=== PATIENT | female | born 1960 | race Caucasian/White ===

== ENCOUNTER 2018-01-17 07:00 | Emergency (ER) | payer OTHER ==
[2018-01-17 07:40] LABS: ADD MAN DIFF? NO
[2018-01-17 07:42] LABS: WHITE BLOOD COUNT 5.3 10^3/ul (4.8-10.8)
[2018-01-17 07:42] LABS: BASOPHILS % 0.7 % (0.0-2.0); EOSINOPHILS # 0.2 10^3/ul (0.0-0.5); EOSINOPHILS % 4.5 % (0.0-7.0); HEMOGLOBIN 10.2 g/dl (12.0-16.0); LYMPHOCYTES # 2.1 10^3/ul (0.8-2.9); LYMPHOCYTES % 39.9 % (15.0-51.0); MEAN CORPUSCULAR HEMOGLOBIN 22.9 pg (29.0-33.0); MEAN CORPUSCULAR HGB CONC 30.9 g/dl (32.0-37.0); MEAN PLATELET VOLUME 9.1 fl (7.4-10.4); MONOCYTE # 0.5 10^3/ul (0.3-0.9); MONOCYTES % 8.4 % (0.0-11.0); NEUTROPHIL # 2.4 10^3/ul (1.6-7.5); NEUTROPHILS % 45.6 % (39.0-77.0); PLATELET COUNT 375 10^3/UL (140-415); RED BLOOD COUNT 4.46 10^6/ul (4.20-5.40); RED CELL DISTRIBUTION WIDTH 18.1 % (11.5-14.5)
[2018-01-17 08:45] LABS: ANION GAP 18 (8-16); BLOOD UREA NITROGEN 10 mg/dl (7-20); CALCIUM 8.7 mg/dl (8.4-10.2); CARBON DIOXIDE 24 mmol/L (21-31); CHLORIDE 105 mmol/L (97-110); GLUCOSE 145 mg/dl (70-220); POTASSIUM 4.7 mmol/L (3.5-5.1); SODIUM 142 mmol/L (135-144)
== END 2018-01-17 12:12 | disposition short-term general hospital (02) ==
LOC: E/R 07:00
DX: H33.023 Retinal detachment with multiple breaks, bilateral (principal); I10 Essential (primary) hypertension; E11.9 Type 2 diabetes mellitus without complications; R51 Headache; Z79.4 Long term (current) use of insulin
CPT/HCPCS: 36415; 70450; 76536; 80048; 85025; 99285-25

== ENCOUNTER 2018-02-12 14:24 | Emergency (ER) | payer OTHER ==
[2018-02-12] MEDS: IBUPROFEN 200 MG TAB PO (15:56)
== END 2018-02-12 16:50 | disposition home or self-care (01) ==
LOC: FTE 14:24
DX: M79.604 Pain in right leg (principal); I10 Essential (primary) hypertension; E11.9 Type 2 diabetes mellitus without complications; E03.9 Hypothyroidism, unspecified; Z79.4 Long term (current) use of insulin; Z79.82 Long term (current) use of aspirin
CPT/HCPCS: 73590; 99283-25

== ENCOUNTER 2018-08-24 12:51 | Inpatient (IN) | payer OTHER ==
[2018-08-24 14:09] LABS: ADD MAN DIFF? NO
[2018-08-24 14:11] LABS: BASOPHILS % 0.2 % (0.0-2.0); EOSINOPHILS # 0.1 10^3/ul (0.0-0.5); EOSINOPHILS % 1.2 % (0.0-7.0); HEMATOCRIT 27.4 % (37.0-47.0); HEMOGLOBIN 8.3 g/dl (12.0-16.0); LYMPHOCYTES # 1.9 10^3/ul (0.8-2.9); LYMPHOCYTES % 21.1 % (15.0-51.0); MEAN CORPUSCULAR HEMOGLOBIN 23.6 pg (29.0-33.0); MEAN CORPUSCULAR HGB CONC 30.3 g/dl (32.0-37.0); MEAN CORPUSCULAR VOLUME 78.1 fl (82.0-101.0); MEAN PLATELET VOLUME 9.6 fl (7.4-10.4); MONOCYTE # 0.7 10^3/ul (0.3-0.9); MONOCYTES % 7.6 % (0.0-11.0); NEUTROPHIL # 6.2 10^3/ul (1.6-7.5); NEUTROPHILS % 69.6 % (39.0-77.0); PLATELET COUNT 478 10^3/UL (140-415); RED BLOOD COUNT 3.51 10^6/ul (4.20-5.40); RED CELL DISTRIBUTION WIDTH 14.7 % (11.5-14.5)
[2018-08-24 14:11] LABS: WHITE BLOOD COUNT 8.9 10^3/ul (4.8-10.8)
[2018-08-24] MEDS: CEFAZOLIN 1 GM/50 ML (PMX) 50 ML IVPB (14:11)
[2018-08-24 14:45] LABS: ALBUMIN/GLOBULIN RATIO 1.07; ANION GAP 13 (5-13); Estimated GFR > 60 mL/min (>60)
[2018-08-24 14:47] LABS: ALANINE AMINOTRANSFERASE 7 IU/L (13-69); ALBUMIN 4.2 g/dl (3.3-4.9); ALKALINE PHOSPHATASE 124 IU/L (42-121); ASPARTATE AMINO TRANSFERASE 19 IU/L (15-46); BILIRUBIN,INDIRECT 0.1 mg/dl (0-1.1); BILIRUBIN,TOTAL 0.1 mg/dl (0.2-1.3); BLOOD UREA NITROGEN 16 mg/dl (7-20); C-REACTIVE PROTEIN 4.4 mg/dl (0.0-0.9); CALCIUM 9.7 mg/dl (8.4-10.2); CARBON DIOXIDE 25 mmol/L (21-31); CHLORIDE 100 mmol/L (97-110); GLUCOSE 251 mg/dl (70-220); POTASSIUM 5.4 mmol/L (3.5-5.1); SODIUM 138 mmol/L (135-144); TOTAL PROTEIN 8.1 g/dl (6.1-8.1)
[2018-08-24 15:20] LABS: ERYTHROCYTE SEDIMENTATION RATE 100 mm/Hr (0-30)
[2018-08-24] MEDS ORDERED: ONDANSETRON 4 MG INJ IV (17:00)
[2018-08-24] MEDS ORDERED: ACETAMINOPHEN 325 MG TAB PO (17:00)
[2018-08-24] MEDS ORDERED: GLUCAGON 1 MG INJ IM (17:30)
[2018-08-24] MEDS ORDERED: GLUCOSE GEL 15 GRAM TUBE PO ×2 (17:30)
[2018-08-24] MEDS ORDERED: DEXTROSE 50% 50 ML SYRINGE IV ×2 (17:30)
[2018-08-24] MEDS ORDERED: GLUCOSE GEL 15 GRAM TUBE BUCCAL (17:30)
[2018-08-24] MEDS ORDERED: BENZONATATE 100 MG CAP PO (17:30)
[2018-08-24 17:34] LABS: HEMOGLOBIN A1C 11.4 % (0-5.9)
[2018-08-24] MEDS: LEVOFLOXACIN 750MG/D5W (PMX) 150 ML IVPB (17:58)
[2018-08-24] MEDS ORDERED: VANCOMYCIN IV PER PHARMACY XX (19:00)
[2018-08-24] MEDS: morphine 2 MG INJ IV (19:32)
[2018-08-24] MEDS: GABAPENTIN 300 MG CAP PO (20:20)
[2018-08-24] MEDS: FERROUS SULFATE (EC) 325 MG TAB PO (20:20)
[2018-08-24] MEDS: INSULIN ASPART [NOVOLOG] 3 ML PEN SC ×2 (20:24→22:09)
[2018-08-24] MEDS: VANCOMYCIN HCL 1.5 GM in SOD CHLORIDE 0.9% 250 ML IVPB (21:28)
[2018-08-24] MEDS: AMITRIPTYLINE 25 MG TAB PO (21:55)
[2018-08-24] MEDS: INSULIN GLARGINE [LANTus] (100 UNITS/ML) SYG SC (21:58)
[2018-08-24] MEDS: MUPIROCIN 2% 22 GM OINT TOP (22:02)
[2018-08-24] MEDS: HYDROCODONE/APAP (5/325) TAB PO (23:46)
[2018-08-25] MEDS: MUPIROCIN 2% 22 GM OINT TOP ×3 (05:09→21:04)
[2018-08-25 05:21] LABS: ADD MAN DIFF? NO
[2018-08-25 05:29] LABS: WHITE BLOOD COUNT 6.7 10^3/ul (4.8-10.8)
[2018-08-25 05:30] LABS: BASOPHILS % 0.4 % (0.0-2.0); EOSINOPHILS # 0.2 10^3/ul (0.0-0.5); EOSINOPHILS % 3.6 % (0.0-7.0); HEMATOCRIT 24.3 % (37.0-47.0); HEMOGLOBIN 7.4 g/dl (12.0-16.0); LYMPHOCYTES # 2.4 10^3/ul (0.8-2.9); LYMPHOCYTES % 36.4 % (15.0-51.0); MEAN CORPUSCULAR HEMOGLOBIN 23.9 pg (29.0-33.0); MEAN CORPUSCULAR HGB CONC 30.5 g/dl (32.0-37.0); MEAN CORPUSCULAR VOLUME 78.4 fl (82.0-101.0); MEAN PLATELET VOLUME 9.4 fl (7.4-10.4); MONOCYTE # 0.7 10^3/ul (0.3-0.9); MONOCYTES % 10.6 % (0.0-11.0); NEUTROPHIL # 3.3 10^3/ul (1.6-7.5); NEUTROPHILS % 48.7 % (39.0-77.0); PLATELET COUNT 423 10^3/UL (140-415); RED CELL DISTRIBUTION WIDTH 14.6 % (11.5-14.5)
[2018-08-25] MEDS: HYDROCODONE/APAP (5/325) TAB PO ×2 (05:40→12:33)
[2018-08-25 06:38] LABS: ANION GAP 6 (5-13); BLOOD UREA NITROGEN 12 mg/dl (7-20); CARBON DIOXIDE 25 mmol/L (21-31); CHLORIDE 104 mmol/L (97-110); CREATININE 0.76 mg/dl (0.44-1.00); Estimated GFR > 60 mL/min (>60); GLUCOSE 113 mg/dl (70-220); MAGNESIUM 1.2 mg/dl (1.7-2.5); PHOSPHORUS 4.3 mg/dl (2.5-4.9); POTASSIUM 4.5 mmol/L (3.5-5.1); SODIUM 135 mmol/L (135-144)
[2018-08-25] MEDS: INSULIN ASPART [NOVOLOG] 3 ML PEN SC ×7 (07:49→21:09)
[2018-08-25] MEDS ORDERED: VANCOMYCIN 750 MG (PMX) 250 ML IVPB (08:00)
[2018-08-25] MEDS: SODIUM HYPOCHLORITE (1/40) 1 APPLIC BTL IRR ×2 (09:09→21:04)
[2018-08-25] MEDS: LORATADINE 10 MG TAB PO (09:09)
[2018-08-25] MEDS: ASPIRIN 81 MG TAB PO (09:09)
[2018-08-25] MEDS: LEVOTHYROXINE 50 MCG TAB PO (09:09)
[2018-08-25] MEDS: GABAPENTIN 300 MG CAP PO ×3 (09:09→21:03)
[2018-08-25] MEDS: FERROUS SULFATE (EC) 325 MG TAB PO ×3 (09:09→21:03)
[2018-08-25] MEDS: VANCOMYCIN 750 MG (PMX) 250 ML IVPB ×2 (09:10→21:03)
[2018-08-25 10:09] LABS: FREE T4 (FREE THYROXINE) 0.98 ng/dl (0.64-1.79); T4 (THYROXINE) 6.8 ug/dl (5.5-11.0)
[2018-08-25 10:09] LABS: FREE T3 3.31 pg/ml (2.77-5.27)
[2018-08-25] MEDS: MAGNESIUM SULFATE 4 GM/100 ML 100 ML IVPB (12:17)
[2018-08-25] MEDS: BENAZEPRIL 40 MG TAB PO (12:18)
[2018-08-25] MEDS: ONDANSETRON 4 MG INJ IV (13:52)
[2018-08-25] MEDS: CHOLECALCIFEROL 2,000 UNIT CAP PO ×2 (15:31→21:03)
[2018-08-25] MEDS: ACETAMINOPHEN 325 MG TAB PO (15:35)
[2018-08-25] MEDS: SOD CHLORIDE 0.9% 500 ML IV (15:58)
[2018-08-25 17:21] LABS: HEMATOCRIT 25.9 % (37.0-47.0); HEMOGLOBIN 7.8 g/dl (12.0-16.0)
[2018-08-25] MEDS: LEVOFLOXACIN 750MG/D5W (PMX) 150 ML IVPB (21:02)
[2018-08-25] MEDS: AMITRIPTYLINE 25 MG TAB PO (21:03)
[2018-08-25] MEDS: INSULIN GLARGINE [LANTus] (100 UNITS/ML) SYG SC (21:09)
[2018-08-25] MEDS: morphine 2 MG INJ IV (23:42)
[2018-08-26] MEDS: LEVOTHYROXINE 50 MCG TAB PO (05:22)
[2018-08-26] MEDS: morphine 2 MG INJ IV ×4 (05:22→20:53)
[2018-08-26 05:26] LABS: ADD MAN DIFF? NO
[2018-08-26 05:38] LABS: BASOPHILS % 0.6 % (0.0-2.0); EOSINOPHILS # 0.2 10^3/ul (0.0-0.5); EOSINOPHILS % 3.1 % (0.0-7.0); HEMATOCRIT 23.5 % (37.0-47.0); HEMOGLOBIN 7.2 g/dl (12.0-16.0); LYMPHOCYTES # 1.7 10^3/ul (0.8-2.9); LYMPHOCYTES % 25.7 % (15.0-51.0); MEAN CORPUSCULAR HEMOGLOBIN 23.6 pg (29.0-33.0); MEAN CORPUSCULAR HGB CONC 30.6 g/dl (32.0-37.0); MEAN PLATELET VOLUME 9.2 fl (7.4-10.4); MONOCYTE # 0.6 10^3/ul (0.3-0.9); MONOCYTES % 8.6 % (0.0-11.0); NEUTROPHILS % 61.5 % (39.0-77.0); PLATELET COUNT 434 10^3/UL (140-415); RED BLOOD COUNT 3.05 10^6/ul (4.20-5.40); RED CELL DISTRIBUTION WIDTH 14.5 % (11.5-14.5)
[2018-08-26 05:38] LABS: WHITE BLOOD COUNT 6.5 10^3/ul (4.8-10.8)
[2018-08-26 06:10] LABS: ALBUMIN 3.5 g/dl (3.3-4.9); ANION GAP 8 (5-13); BLOOD UREA NITROGEN 8 mg/dl (7-20); CALCIUM 9.2 mg/dl (8.4-10.2); CARBON DIOXIDE 24 mmol/L (21-31); CHLORIDE 101 mmol/L (97-110); CREATININE 0.66 mg/dl (0.44-1.00); GLUCOSE 150 mg/dl (70-220); MAGNESIUM 2.3 mg/dl (1.7-2.5); PHOSPHORUS 4.2 mg/dl (2.5-4.9); POTASSIUM 4.6 mmol/L (3.5-5.1); SODIUM 133 mmol/L (135-144)
[2018-08-26] MEDS: BENAZEPRIL 40 MG TAB PO (08:22)
[2018-08-26] MEDS: LORATADINE 10 MG TAB PO (08:22)
[2018-08-26] MEDS: CHOLECALCIFEROL 2,000 UNIT CAP PO ×2 (08:22→20:43)
[2018-08-26] MEDS: FERROUS SULFATE (EC) 325 MG TAB PO ×3 (08:22→20:43)
[2018-08-26] MEDS: GABAPENTIN 300 MG CAP PO ×3 (08:22→20:43)
[2018-08-26] MEDS: ASPIRIN 81 MG TAB PO (08:22)
[2018-08-26] MEDS: INSULIN ASPART [NOVOLOG] 3 ML PEN SC ×7 (08:24→20:44)
[2018-08-26 08:56] LABS: VANCOMYCIN,TROUGH 11.6 ug/ml (10.0-20.0)
[2018-08-26] MEDS: SODIUM HYPOCHLORITE (1/40) 1 APPLIC BTL IRR ×2 (09:00→20:42)
[2018-08-26] MEDS: MUPIROCIN 2% 22 GM OINT TOP ×2 (09:00→20:44)
[2018-08-26] MEDS: VANCOMYCIN 750 MG (PMX) 250 ML IVPB (10:18)
[2018-08-26 11:31] LABS: HEMATOCRIT 23.7 % (37.0-47.0); HEMOGLOBIN 7.2 g/dl (12.0-16.0)
[2018-08-26] MEDS: LEVOFLOXACIN 750MG/D5W (PMX) 150 ML IVPB (17:30)
[2018-08-26] MEDS: INSULIN GLARGINE [LANTus] (100 UNITS/ML) SYG SC (20:41)
[2018-08-26] MEDS: AMITRIPTYLINE 25 MG TAB PO (20:43)
[2018-08-26] MEDS: ACETAMINOPHEN 325 MG TAB PO (22:05)
[2018-08-26] MEDS: VANCOMYCIN 1 GM 250 ML IVPB (22:05)
[2018-08-27 06:06] LABS: ADD MAN DIFF? NO
[2018-08-27 06:09] LABS: BASOPHILS % 0.5 % (0.0-2.0); EOSINOPHILS # 0.2 10^3/ul (0.0-0.5); EOSINOPHILS % 3.6 % (0.0-7.0); HEMATOCRIT 24.4 % (37.0-47.0); HEMOGLOBIN 7.5 g/dl (12.0-16.0); LYMPHOCYTES # 2.3 10^3/ul (0.8-2.9); LYMPHOCYTES % 39.4 % (15.0-51.0); MEAN CORPUSCULAR HGB CONC 30.7 g/dl (32.0-37.0); MEAN CORPUSCULAR VOLUME 78.2 fl (82.0-101.0); MONOCYTE # 0.7 10^3/ul (0.3-0.9); MONOCYTES % 11.3 % (0.0-11.0); NEUTROPHIL # 2.7 10^3/ul (1.6-7.5); PLATELET COUNT 432 10^3/UL (140-415); RED BLOOD COUNT 3.12 10^6/ul (4.20-5.40); RED CELL DISTRIBUTION WIDTH 14.7 % (11.5-14.5)
[2018-08-27 06:09] LABS: WHITE BLOOD COUNT 5.9 10^3/ul (4.8-10.8)
[2018-08-27] MEDS: LEVOTHYROXINE 50 MCG TAB PO (06:09)
[2018-08-27 06:36] LABS: ALBUMIN 3.4 g/dl (3.3-4.9); ANION GAP 9 (5-13); BLOOD UREA NITROGEN 7 mg/dl (7-20); CALCIUM 9.3 mg/dl (8.4-10.2); CARBON DIOXIDE 24 mmol/L (21-31); CHLORIDE 103 mmol/L (97-110); CREATININE 0.65 mg/dl (0.44-1.00); GLUCOSE 110 mg/dl (70-220); MAGNESIUM 1.6 mg/dl (1.7-2.5); PHOSPHORUS 4.2 mg/dl (2.5-4.9); POTASSIUM 4.6 mmol/L (3.5-5.1); SODIUM 136 mmol/L (135-144)
[2018-08-27] MEDS: INSULIN ASPART [NOVOLOG] 3 ML PEN SC ×7 (08:00→22:40)
[2018-08-27] MEDS: SODIUM HYPOCHLORITE (1/40) 1 APPLIC BTL IRR ×2 (09:00→19:43)
[2018-08-27] MEDS ORDERED: ONDANSETRON 4 MG INJ IV (09:00)
[2018-08-27] MEDS: GABAPENTIN 300 MG CAP PO ×3 (09:00→22:44)
[2018-08-27] MEDS: FERROUS SULFATE (EC) 325 MG TAB PO ×3 (09:00→22:44)
[2018-08-27] MEDS: BENAZEPRIL 40 MG TAB PO (09:00)
[2018-08-27] MEDS: LORATADINE 10 MG TAB PO (09:00)
[2018-08-27] MEDS: CHOLECALCIFEROL 2,000 UNIT CAP PO ×2 (09:00→22:44)
[2018-08-27] MEDS ORDERED: PROCHLORPERAZINE 10 MG INJ IV (09:00)
[2018-08-27] MEDS: MUPIROCIN 2% 22 GM OINT TOP ×2 (09:00→21:00)
[2018-08-27] MEDS ORDERED: OXYCODONE/ACETAMINOPHEN (5/325) TAB PO ×2 (09:00)
[2018-08-27] MEDS: ASPIRIN 81 MG TAB PO (09:00)
[2018-08-27] MEDS ORDERED: MEPERIDINE 25 MG INJ IV (09:00)
[2018-08-27] MEDS ORDERED: HYDROmorphONE 1 MG/5 ML IV SYRINGE IV ×3 (09:00)
[2018-08-27] MEDS ORDERED: PROPOFOL 20 ML (09:27)
[2018-08-27] MEDS ORDERED: LIDOCAINE 2% (SDV) 5 ML INJ (09:27)
[2018-08-27] MEDS ORDERED: FENTAnyl 50 MCG/ML VIAL (09:28)
[2018-08-27] MEDS ORDERED: MIDAZOLAM 1 MG/ML 2 ML INJ (09:28)
[2018-08-27] MEDS ORDERED: BACITRACIN 50000 UNITS INJ (09:48)
[2018-08-27] MEDS ORDERED: POLYMYXIN B 500000 UNIT INJ (09:50)
[2018-08-27] MEDS ORDERED: ONDANSETRON 4 MG INJ (10:24)
[2018-08-27] MEDS ORDERED: FAMOTIDINE 20 MG INJ (10:24)
[2018-08-27] MEDS ORDERED: METOCLOPRAMIDE 10 MG INJ (10:24)
[2018-08-27] MEDS ORDERED: PHENYLephrine (100 MCG/ML) 5ML SYG (10:49)
[2018-08-27] MEDS: POLYMYXIN/BACITRACIN 1L IRRIG (11:00)
[2018-08-27] MEDS: LIDOCAINE 1% (MPF) 30 ML INJ (11:02)
[2018-08-27] MEDS: morphine LIQ (10 MG/5 ML) CUP PO ×2 (13:49→20:55)
[2018-08-27] MEDS: CIPROFLOXACIN 500 MG TAB PO (17:43)
[2018-08-27] MEDS: HYDROCODONE/APAP (5/325) TAB PO (17:47)
[2018-08-27] MEDS: NACL 0.9% 3 ML SYG IV (20:57)
[2018-08-27] MEDS: INSULIN GLARGINE [LANTus] (100 UNITS/ML) SYG SC (22:41)
[2018-08-27] MEDS: AMITRIPTYLINE 25 MG TAB PO (22:44)
[2018-08-28] MEDS: HYDROCODONE/APAP (5/325) TAB PO ×2 (00:06→08:10)
[2018-08-28] MEDS: LEVOTHYROXINE 50 MCG TAB PO (05:09)
[2018-08-28] MEDS: CIPROFLOXACIN 500 MG TAB PO ×2 (05:09→17:28)
[2018-08-28] MEDS: morphine LIQ (10 MG/5 ML) CUP PO ×4 (05:10→19:59)
[2018-08-28 05:56] LABS: ADD MAN DIFF? NO
[2018-08-28 06:05] LABS: ABNORMAL IP MESSAGE 1; BASOPHILS % 0.5 % (0.0-2.0); EOSINOPHILS # 0.2 10^3/ul (0.0-0.5); EOSINOPHILS % 3.8 % (0.0-7.0); HEMATOCRIT 21.7 % (37.0-47.0); LYMPHOCYTES # 2.3 10^3/ul (0.8-2.9); LYMPHOCYTES % 36.5 % (15.0-51.0); MEAN CORPUSCULAR HGB CONC 30.4 g/dl (32.0-37.0); MEAN CORPUSCULAR VOLUME 78.9 fl (82.0-101.0); MEAN PLATELET VOLUME 9.1 fl (7.4-10.4); MONOCYTE # 0.7 10^3/ul (0.3-0.9); MONOCYTES % 11.3 % (0.0-11.0); NEUTROPHILS % 47.4 % (39.0-77.0); PLATELET COUNT 387 10^3/UL (140-415); RED BLOOD COUNT 2.75 10^6/ul (4.20-5.40); RED CELL DISTRIBUTION WIDTH 14.9 % (11.5-14.5)
[2018-08-28 06:05] LABS: WHITE BLOOD COUNT 6.3 10^3/ul (4.8-10.8)
[2018-08-28 06:56] LABS: POSITIVE DIFF @See below
[2018-08-28 06:58] LABS: HEMOGLOBIN 6.6 g/dl (12.0-16.0)
[2018-08-28 07:02] LABS: ALBUMIN 3.3 g/dl (3.3-4.9); ANION GAP 8 (5-13); BLOOD UREA NITROGEN 8 mg/dl (7-20); CALCIUM 8.9 mg/dl (8.4-10.2); CARBON DIOXIDE 25 mmol/L (21-31); CHLORIDE 100 mmol/L (97-110); CREATININE 0.67 mg/dl (0.44-1.00); GLUCOSE 153 mg/dl (70-220); MAGNESIUM 1.5 mg/dl (1.7-2.5); POTASSIUM 4.6 mmol/L (3.5-5.1); SODIUM 133 mmol/L (135-144)
[2018-08-28] MEDS: FERROUS SULFATE (EC) 325 MG TAB PO ×2 (08:03→12:40)
[2018-08-28] MEDS: CHOLECALCIFEROL 2,000 UNIT CAP PO ×2 (08:03→20:55)
[2018-08-28] MEDS: GABAPENTIN 300 MG CAP PO ×3 (08:03→20:56)
[2018-08-28] MEDS: MUPIROCIN 2% 22 GM OINT TOP ×2 (08:04→20:50)
[2018-08-28] MEDS: LORATADINE 10 MG TAB PO (08:04)
[2018-08-28] MEDS: INSULIN ASPART [NOVOLOG] 3 ML PEN SC ×7 (08:06→20:59)
[2018-08-28] MEDS: SODIUM HYPOCHLORITE (1/40) 1 APPLIC BTL IRR ×2 (08:07→20:56)
[2018-08-28] MEDS: BENAZEPRIL 40 MG TAB PO (09:45)
[2018-08-28 09:54] LABS: IMMEDIATE SPIN CROSSMATCH 1 1
[2018-08-28 10:27] LABS: ANISOCYTOSIS 1+ (0-0); BASOPHIL #M 0.1 10^3/ul (0.0-0.0); BASOPHILS % (M) 2 % (0-2); EOSINOPHILS % (M) 6 % (0-7); GIANT THROMBO% (M) 1 % (0-0); LYMPHOCYTES #M 1.7 10^3/ul (0.8-2.9); LYMPHOCYTES % (M) 28 % (15-51); MICROCYTOSIS 1+ (0-0); MONOCYTE #M 0.5 10^3/ul (0.3-0.9); MONOCYTES % (M) 8 % (0-11); PLATELET ESTIMATE NORMAL; POLYCHROMASIA 1+ (0-0); REACTIVE LYMPHOCYTES #M 0.2 10^3/ul (0.0-0.0); REACTIVE LYMPHOCYTES% (M) 4 % (0-0); SEGMENTED NEUTROPHILS (M) % 52 % (39-77); SMUDGE%M 17 % (0-0)
[2018-08-28] MEDS: ASPIRIN 81 MG TAB PO (11:58)
[2018-08-28] MEDS: AMITRIPTYLINE 25 MG TAB PO (20:56)
[2018-08-28] MEDS: INSULIN GLARGINE [LANTus] (100 UNITS/ML) SYG SC (20:58)
[2018-08-29] MEDS: CIPROFLOXACIN 500 MG TAB PO ×3 (06:36→20:57)
[2018-08-29] MEDS: LEVOTHYROXINE 50 MCG TAB PO (06:36)
[2018-08-29] MEDS: morphine LIQ (10 MG/5 ML) CUP PO (06:49)
[2018-08-29] MEDS: CHOLECALCIFEROL 2,000 UNIT CAP PO ×2 (08:16→20:57)
[2018-08-29] MEDS: GABAPENTIN 300 MG CAP PO ×3 (08:16→20:58)
[2018-08-29] MEDS: LORATADINE 10 MG TAB PO (08:17)
[2018-08-29] MEDS: ASPIRIN 81 MG TAB PO (08:17)
[2018-08-29] MEDS: MUPIROCIN 2% 22 GM OINT TOP ×2 (08:17→21:01)
[2018-08-29] MEDS: BENAZEPRIL 40 MG TAB PO (08:17)
[2018-08-29] MEDS: INSULIN ASPART [NOVOLOG] 3 ML PEN SC ×7 (08:20→20:56)
[2018-08-29] MEDS: SODIUM HYPOCHLORITE (1/40) 1 APPLIC BTL IRR ×2 (09:00→20:59)
[2018-08-29] MEDS: HYDROCODONE/APAP (5/325) TAB PO ×3 (13:13→20:56)
[2018-08-29 14:45] LABS: ADD MAN DIFF? NO
[2018-08-29 14:49] LABS: WHITE BLOOD COUNT 6.2 10^3/ul (4.8-10.8)
[2018-08-29 14:49] LABS: BASOPHILS % 0.5 % (0.0-2.0); EOSINOPHILS # 0.3 10^3/ul (0.0-0.5); EOSINOPHILS % 4.4 % (0.0-7.0); HEMATOCRIT 28.8 % (37.0-47.0); HEMOGLOBIN 8.8 g/dl (12.0-16.0); LYMPHOCYTES # 2.2 10^3/ul (0.8-2.9); LYMPHOCYTES % 35.3 % (15.0-51.0); MEAN CORPUSCULAR HEMOGLOBIN 24.4 pg (29.0-33.0); MEAN CORPUSCULAR HGB CONC 30.6 g/dl (32.0-37.0); MEAN CORPUSCULAR VOLUME 79.8 fl (82.0-101.0); MEAN PLATELET VOLUME 8.9 fl (7.4-10.4); MONOCYTE # 0.6 10^3/ul (0.3-0.9); MONOCYTES % 9.7 % (0.0-11.0); NEUTROPHIL # 3.1 10^3/ul (1.6-7.5); NEUTROPHILS % 49.8 % (39.0-77.0); PLATELET COUNT 437 10^3/UL (140-415); RED BLOOD COUNT 3.61 10^6/ul (4.20-5.40); RED CELL DISTRIBUTION WIDTH 15.4 % (11.5-14.5)
[2018-08-29 15:10] LABS: INR 0.96; PROTIME 12.9 Sec (11.9-14.9)
[2018-08-29 15:11] LABS: PARTIAL THROMBOPLASTIN TIME 29.9 Sec (23.0-35.0)
[2018-08-29] MEDS: INSULIN GLARGINE [LANTus] (100 UNITS/ML) SYG SC (20:55)
[2018-08-29] MEDS: DOCUSATE SODIUM 100 MG CAP PO (20:56)
[2018-08-29] MEDS: AMITRIPTYLINE 25 MG TAB PO (20:58)
[2018-08-29] MEDS: ONDANSETRON 4 MG INJ IV (22:10)
[2018-08-30] MEDS: CIPROFLOXACIN 500 MG TAB PO (06:00)
[2018-08-30] MEDS: LEVOTHYROXINE 50 MCG TAB PO (06:03)
[2018-08-30] MEDS: HYDROCODONE/APAP (5/325) TAB PO ×3 (06:03→23:56)
[2018-08-30 06:12] LABS: ADD MAN DIFF? NO
[2018-08-30 06:16] LABS: WHITE BLOOD COUNT 5.6 10^3/ul (4.8-10.8)
[2018-08-30 06:16] LABS: BASOPHILS % 0.4 % (0.0-2.0); EOSINOPHILS # 0.3 10^3/ul (0.0-0.5); EOSINOPHILS % 6.1 % (0.0-7.0); HEMATOCRIT 27.4 % (37.0-47.0); HEMOGLOBIN 8.6 g/dl (12.0-16.0); LYMPHOCYTES # 1.9 10^3/ul (0.8-2.9); LYMPHOCYTES % 33.9 % (15.0-51.0); MEAN CORPUSCULAR HEMOGLOBIN 24.8 pg (29.0-33.0); MEAN CORPUSCULAR HGB CONC 31.4 g/dl (32.0-37.0); MEAN PLATELET VOLUME 8.8 fl (7.4-10.4); MONOCYTE # 0.6 10^3/ul (0.3-0.9); MONOCYTES % 10.1 % (0.0-11.0); NEUTROPHIL # 2.7 10^3/ul (1.6-7.5); PLATELET COUNT 416 10^3/UL (140-415); RED BLOOD COUNT 3.47 10^6/ul (4.20-5.40); RED CELL DISTRIBUTION WIDTH 15.5 % (11.5-14.5)
[2018-08-30 06:34] LABS: INR 0.91; PROTIME 12.4 Sec (11.9-14.9)
[2018-08-30 06:35] LABS: PARTIAL THROMBOPLASTIN TIME 28.9 Sec (23.0-35.0)
[2018-08-30 06:38] LABS: ALANINE AMINOTRANSFERASE 12 IU/L (13-69); ALBUMIN 3.5 g/dl (3.3-4.9); ALBUMIN/GLOBULIN RATIO 0.97; ALKALINE PHOSPHATASE 91 IU/L (42-121); ANION GAP 7 (5-13); ASPARTATE AMINO TRANSFERASE 29 IU/L (15-46); BILIRUBIN,INDIRECT 0.3 mg/dl (0-1.1); BILIRUBIN,TOTAL 0.3 mg/dl (0.2-1.3); BLOOD UREA NITROGEN 8 mg/dl (7-20); CARBON DIOXIDE 26 mmol/L (21-31); CHLORIDE 97 mmol/L (97-110); CREATININE 0.61 mg/dl (0.44-1.00); Estimated GFR > 60 mL/min (>60); GLUCOSE 147 mg/dl (70-220); POTASSIUM 4.4 mmol/L (3.5-5.1); SODIUM 130 mmol/L (135-144); TOTAL PROTEIN 7.1 g/dl (6.1-8.1)
[2018-08-30] MEDS: INSULIN ASPART [NOVOLOG] 3 ML PEN SC ×7 (08:00→21:00)
[2018-08-30] MEDS: GABAPENTIN 300 MG CAP PO ×3 (08:23→21:01)
[2018-08-30] MEDS: ASPIRIN 81 MG TAB PO (08:23)
[2018-08-30] MEDS: CHOLECALCIFEROL 2,000 UNIT CAP PO ×2 (08:23→21:01)
[2018-08-30] MEDS: LORATADINE 10 MG TAB PO (08:23)
[2018-08-30] MEDS: BENAZEPRIL 40 MG TAB PO (08:23)
[2018-08-30] MEDS: MUPIROCIN 2% 22 GM OINT TOP (08:24)
[2018-08-30] MEDS: SODIUM HYPOCHLORITE (1/40) 1 APPLIC BTL IRR (08:24)
[2018-08-30] MEDS: morphine LIQ (10 MG/5 ML) CUP PO ×2 (08:31→17:55)
[2018-08-30] MEDS: ONDANSETRON 4 MG INJ IV ×2 (09:25→15:38)
[2018-08-30] MEDS ORDERED: NA PHOSPHATE/BIPHOS 133 ML ENEMA PR (11:30)
[2018-08-30] MEDS: DOCUSATE SODIUM 100 MG CAP PO (11:39)
[2018-08-30] MEDS: ACET/BUTAL/CAFF TAB PO (11:40)
[2018-08-30] MEDS: CEFTRIAXONE 1 GM/50 ML (PMX) 50 ML IVPB (11:49)
[2018-08-30] MEDS: NA PHOSPHATE/BIPHOS 133 ML ENEMA PR (11:49)
[2018-08-30] MEDS ORDERED: LIDOCAINE 1% (MPF) 5 ML VIAL SC (15:30)
[2018-08-30] MEDS: AMITRIPTYLINE 25 MG TAB PO (21:01)
[2018-08-30] MEDS: INSULIN GLARGINE [LANTus] (100 UNITS/ML) SYG SC (21:02)
[2018-08-31] MEDS: LEVOTHYROXINE 50 MCG TAB PO (07:02)
[2018-08-31] MEDS ORDERED: LIDOCAINE 1% (MPF) 5 ML VIAL SC (07:30)
[2018-08-31] MEDS: INSULIN ASPART [NOVOLOG] 3 ML PEN SC ×7 (08:00→21:13)
[2018-08-31] MEDS: CHOLECALCIFEROL 2,000 UNIT CAP PO ×2 (08:23→21:05)
[2018-08-31] MEDS: GABAPENTIN 300 MG CAP PO ×3 (08:24→21:05)
[2018-08-31] MEDS: LORATADINE 10 MG TAB PO (08:24)
[2018-08-31] MEDS: BENAZEPRIL 40 MG TAB PO (08:24)
[2018-08-31] MEDS: ASPIRIN 81 MG TAB PO (08:24)
[2018-08-31] MEDS: SOD FERRIC GLUC COMPLX 125 MG in SOD CHLORIDE 0.9% 100 ML IVPB (10:18)
[2018-08-31] MEDS: CEFTRIAXONE 1 GM/50 ML (PMX) 50 ML IVPB (14:05)
[2018-08-31] MEDS: AMITRIPTYLINE 25 MG TAB PO (21:05)
[2018-08-31] MEDS: INSULIN GLARGINE [LANTus] (100 UNITS/ML) SYG SC (21:12)
[2018-09-01] MEDS: LEVOTHYROXINE 50 MCG TAB PO (07:01)
[2018-09-01] MEDS: MUPIROCIN 2% 22 GM OINT TOP (08:01)
[2018-09-01] MEDS: GABAPENTIN 300 MG CAP PO ×3 (08:02→20:23)
[2018-09-01] MEDS: ASPIRIN 81 MG TAB PO (08:02)
[2018-09-01] MEDS: CHOLECALCIFEROL 2,000 UNIT CAP PO ×2 (08:02→09:00)
[2018-09-01] MEDS: SODIUM HYPOCHLORITE (1/40) 1 APPLIC BTL IRR (08:02)
[2018-09-01] MEDS: BENAZEPRIL 40 MG TAB PO (08:03)
[2018-09-01] MEDS: LORATADINE 10 MG TAB PO (08:03)
[2018-09-01] MEDS: INSULIN ASPART [NOVOLOG] 3 ML PEN SC ×7 (08:08→20:23)
[2018-09-01] MEDS: SOD FERRIC GLUC COMPLX 125 MG in SOD CHLORIDE 0.9% 100 ML IVPB (09:49)
[2018-09-01] MEDS ORDERED: ERGOCALCIFEROL (8000 UNITS/ML PO SYG) PO (10:00)
[2018-09-01] MEDS: ERGOCALCIFEROL 50,000 UNIT CAP PO (11:02)
[2018-09-01] MEDS: CEFTRIAXONE 1 GM/50 ML (PMX) 50 ML IVPB (12:10)
[2018-09-01] MEDS: AMITRIPTYLINE 25 MG TAB PO (20:23)
[2018-09-01] MEDS: INSULIN GLARGINE [LANTus] (100 UNITS/ML) SYG SC (20:27)
[2018-09-02 05:00] LABS: ADD MAN DIFF? NO
[2018-09-02 05:07] LABS: BASOPHILS % 0.7 % (0.0-2.0); EOSINOPHILS # 0.3 10^3/ul (0.0-0.5); EOSINOPHILS % 4.8 % (0.0-7.0); HEMATOCRIT 31.7 % (37.0-47.0); HEMOGLOBIN 9.8 g/dl (12.0-16.0); LYMPHOCYTES # 2.3 10^3/ul (0.8-2.9); MEAN CORPUSCULAR HEMOGLOBIN 25.2 pg (29.0-33.0); MEAN CORPUSCULAR HGB CONC 30.9 g/dl (32.0-37.0); MEAN CORPUSCULAR VOLUME 81.5 fl (82.0-101.0); MONOCYTE # 0.7 10^3/ul (0.3-0.9); MONOCYTES % 11.7 % (0.0-11.0); NEUTROPHIL # 2.3 10^3/ul (1.6-7.5); NEUTROPHILS % 41.3 % (39.0-77.0); PLATELET COUNT 449 10^3/UL (140-415); RED BLOOD COUNT 3.89 10^6/ul (4.20-5.40); RED CELL DISTRIBUTION WIDTH 16.6 % (11.5-14.5)
[2018-09-02 05:07] LABS: WHITE BLOOD COUNT 5.6 10^3/ul (4.8-10.8)
[2018-09-02 05:32] LABS: ALANINE AMINOTRANSFERASE 9 IU/L (13-69); ALBUMIN 3.5 g/dl (3.3-4.9); ALBUMIN/GLOBULIN RATIO 0.89; ALKALINE PHOSPHATASE 81 IU/L (42-121); ANION GAP 14 (5-13); ASPARTATE AMINO TRANSFERASE 29 IU/L (15-46); BILIRUBIN,INDIRECT 0.1 mg/dl (0-1.1); BILIRUBIN,TOTAL 0.1 mg/dl (0.2-1.3); BLOOD UREA NITROGEN 7 mg/dl (7-20); CALCIUM 9.2 mg/dl (8.4-10.2); CARBON DIOXIDE 24 mmol/L (21-31); CHLORIDE 101 mmol/L (97-110); CREATININE 0.59 mg/dl (0.44-1.00); Estimated GFR > 60 mL/min (>60); GLUCOSE 163 mg/dl (70-220); POTASSIUM 4.2 mmol/L (3.5-5.1); SODIUM 139 mmol/L (135-144); TOTAL PROTEIN 7.4 g/dl (6.1-8.1)
[2018-09-02] MEDS: LEVOTHYROXINE 50 MCG TAB PO (06:21)
[2018-09-02] MEDS: GABAPENTIN 300 MG CAP PO ×3 (08:14→20:59)
[2018-09-02] MEDS: CHOLECALCIFEROL 2,000 UNIT CAP PO ×2 (08:14→08:18)
[2018-09-02] MEDS: LORATADINE 10 MG TAB PO (08:14)
[2018-09-02] MEDS: BENAZEPRIL 40 MG TAB PO (08:14)
[2018-09-02] MEDS: ASPIRIN 81 MG TAB PO (08:14)
[2018-09-02] MEDS: INSULIN ASPART [NOVOLOG] 3 ML PEN SC ×7 (08:16→21:00)
[2018-09-02] MEDS: ERGOCALCIFEROL (8000 UNITS/ML PO SYG) PO (10:38)
[2018-09-02] MEDS: CEFTRIAXONE 1 GM/50 ML (PMX) 50 ML IVPB (12:46)
[2018-09-02] MEDS: DOCUSATE SODIUM 100 MG CAP PO (17:48)
[2018-09-02] MEDS: POLYETHYLENE GLYCOL 17 GM PACKET PO (17:48)
[2018-09-02] MEDS: AMITRIPTYLINE 25 MG TAB PO (20:59)
[2018-09-02] MEDS: INSULIN GLARGINE [LANTus] (100 UNITS/ML) SYG SC (21:01)
[2018-09-03] MEDS: LEVOTHYROXINE 50 MCG TAB PO (06:57)
[2018-09-03] MEDS: INSULIN ASPART [NOVOLOG] 3 ML PEN SC ×8 (08:00→20:34)
[2018-09-03] MEDS: CHOLECALCIFEROL 2,000 UNIT CAP PO (08:54)
[2018-09-03] MEDS: GABAPENTIN 300 MG CAP PO ×3 (08:55→20:25)
[2018-09-03] MEDS: BENAZEPRIL 40 MG TAB PO (08:55)
[2018-09-03] MEDS: MUPIROCIN 2% 22 GM OINT TOP (08:55)
[2018-09-03] MEDS: LORATADINE 10 MG TAB PO (08:55)
[2018-09-03] MEDS: SODIUM HYPOCHLORITE (1/40) 1 APPLIC BTL IRR (09:00)
[2018-09-03] MEDS: ASPIRIN 81 MG TAB PO (09:13)
[2018-09-03] MEDS: CEFTRIAXONE 1 GM/50 ML (PMX) 50 ML IVPB (11:55)
[2018-09-03] MEDS: AMITRIPTYLINE 25 MG TAB PO (20:24)
[2018-09-03] MEDS: INSULIN GLARGINE [LANTus] (100 UNITS/ML) SYG SC (20:28)
[2018-09-04] MEDS: POLYETHYLENE GLYCOL 17 GM PACKET PO (03:58)
[2018-09-04] MEDS: DOCUSATE SODIUM 100 MG CAP PO (03:58)
[2018-09-04] MEDS: LEVOTHYROXINE 50 MCG TAB PO (06:02)
[2018-09-04] MEDS: INSULIN ASPART [NOVOLOG] 3 ML PEN SC ×7 (08:08→20:44)
[2018-09-04] MEDS: CHOLECALCIFEROL 2,000 UNIT CAP PO (08:16)
[2018-09-04] MEDS: BENAZEPRIL 40 MG TAB PO (08:17)
[2018-09-04] MEDS: LORATADINE 10 MG TAB PO (08:17)
[2018-09-04] MEDS: GABAPENTIN 300 MG CAP PO ×3 (08:17→20:37)
[2018-09-04] MEDS: ASPIRIN 81 MG TAB PO (08:17)
[2018-09-04] MEDS: CEFTRIAXONE 1 GM/50 ML (PMX) 50 ML IVPB (12:20)
[2018-09-04] MEDS: LACTULOSE 30ML CUP PO (13:37)
[2018-09-04] MEDS ORDERED: NA PHOSPHATE/BIPHOS 133 ML ENEMA PR (16:00)
[2018-09-04] MEDS: SENNA/DOCUSATE NA (8.6MG/50MG) TAB PO (20:37)
[2018-09-04] MEDS: AMITRIPTYLINE 25 MG TAB PO (20:37)
[2018-09-04] MEDS: INSULIN GLARGINE [LANTus] (100 UNITS/ML) SYG SC (20:42)
[2018-09-05] MEDS: LEVOTHYROXINE 50 MCG TAB PO (06:52)
[2018-09-05] MEDS: INSULIN ASPART [NOVOLOG] 3 ML PEN SC ×4 (08:26→13:13)
[2018-09-05] MEDS: ASPIRIN 81 MG TAB PO (08:27)
[2018-09-05] MEDS: SENNA/DOCUSATE NA (8.6MG/50MG) TAB PO (08:27)
[2018-09-05] MEDS: CHOLECALCIFEROL 2,000 UNIT CAP PO (08:27)
[2018-09-05] MEDS: GABAPENTIN 300 MG CAP PO (08:27)
[2018-09-05] MEDS: LORATADINE 10 MG TAB PO (08:27)
[2018-09-05] MEDS: BENAZEPRIL 40 MG TAB PO (08:27)
[2018-09-05] MEDS: MUPIROCIN 2% 22 GM OINT TOP (08:28)
[2018-09-05] MEDS: CEFTRIAXONE 1 GM/50 ML (PMX) 50 ML IVPB (12:38)
== END 2018-09-05 14:10 | disposition home health service (06) | DRG 617 ==
LOC: FTE 12:51 → 2NE 17:01
PROC: 0Y6S0Z1 Detachment at Left 2nd Toe, High, Open Approach (ICD-10-PCS; principal; 2018-08-27 10:25)
PROC: 0JBR0ZZ Excision of Left Foot Subcutaneous Tissue and Fascia, Open Approach (ICD-10-PCS; 2018-08-27 10:25)
PROC: 30233N1 Transfusion of Nonautologous Red Blood Cells into Peripheral Vein, Percutaneous Approach (ICD-10-PCS; 2018-08-27 10:25)
PROC: 05HY33Z Insertion of Infusion Device into Upper Vein, Percutaneous Approach (ICD-10-PCS; 2018-08-27 10:25)
DX: E11.621 Type 2 diabetes mellitus with foot ulcer (principal); D62 Acute posthemorrhagic anemia; L97.528 Non-pressure chronic ulcer of other part of left foot with other specified severity; M86.8X7 Other osteomyelitis, ankle and foot; L03.116 Cellulitis of left lower limb; E11.65 Type 2 diabetes mellitus with hyperglycemia; E11.69 Type 2 diabetes mellitus with other specified complication; E87.5 Hyperkalemia; E11.40 Type 2 diabetes mellitus with diabetic neuropathy, unspecified; E03.9 Hypothyroidism, unspecified; D64.9 Anemia, unspecified; E55.9 Vitamin D deficiency, unspecified; E66.9 Obesity, unspecified; Z68.33 Body mass index [BMI] 33.0-33.9, adult; I10 Essential (primary) hypertension
CPT/HCPCS: 36415; 36430; 36569; 71045; 73610; 73630-LT; 73718; 73721; 76937; 80048; 80053; 80069; 80202; 82306; 82652; 82962; 83036; 83735; 84100; 84436; 84439; 84443; 84481; 85014; 85018; 85025; 85610; 85651; 85730; 86140; 86850; 86900; 86901; 86920; 86945; 87040; 87070; 87075; 87102; 88304; 88311; 96365; 99285-25